=== PATIENT | female | born 1995 | race American Indian/Alaskan Native ===

== ENCOUNTER 2017-02-15 19:19 | Emergency (ER) | payer MEDICAID ==
[2017-02-15 19:46] VITALS: BP 140/78
== END 2017-02-16 01:58 | disposition left against medical advice (07) ==
LOC: ED 19:19
DX: R22.9 Localized swelling, mass and lump, unspecified (principal); Z53.21 Procedure and treatment not carried out due to patient leaving prior to being seen by health care provider

== ENCOUNTER 2017-03-06 14:20 | Emergency (ER) | payer MEDICAID ==
[2017-03-06 14:32] VITALS: BP 156/73
[2017-03-06 15:13] LABS: Bilirubin,Urine NEG (Negative); Blood,Urine NEG (Negative); Ketones,Urine NEG (Negative); Leukocyte Esterase,Urine NEG (Negative); Mucus,Urine FEW /HPF; Nitrite,Urine NEG (Negative); Protein,Urine <15 mg/dL mg/dL (Negative); RBC,Urine < 1.0 /HPF (0.0-6.0); Urobilinogen,Urine < 2.0 mg/dL (<2.0)
[2017-03-06 15:54] LABS: Basophils % (Auto) 0.1 % (0.0-1.8); Eosinophils % (Auto) 0.3 % (0.0-4.3); Hematocrit 29.6 % (30.3-42.9); Hemoglobin 9.2 gm/dl (10.1-14.3); Mean Corpuscular HGB Conc 31 % (30-34); Platelet Count 310 K/mm3 (140-440); Red Blood Count 4.65 M/mm3 (3.65-5.03); White Blood Count 13.5 K/mm3 (4.5-11.0)
[2017-03-06 15:55] LABS: Mean Corpuscular Hemoglobin 20 pg (28-32); Mean Corpuscular Volume 64 fl (79-97); Red Cell Distribution Width 20.4 % (13.2-15.2)
[2017-03-06 16:09] LABS: Alanine Aminotransferase 20 units/L (7-56); Albumin 3.7 g/dL (3.9-5); Albumin/Globulin Ratio 0.9 %; Alkaline Phosphatase 76 units/L (35-129); Anion Gap 16 mmol/L; Bilirubin,Total 0.2 mg/dL (0.1-1.2); Blood Urea Nitrogen 7 mg/dL (7-17); Calcium 9.2 mg/dL (8.4-10.2); Carbon Dioxide 24 mmol/L (22-30); Chloride 96.7 mmol/L (98-107); Glucose 92 mg/dL (65-100); Lipase 14 units/L (13-60); Potassium 3.7 mmol/L (3.6-5.0); Sodium 133 mmol/L (137-145); Total Protein 7.8 g/dL (6.3-8.2)
--- NOTE | 2017-03-07 14:14 | ED Elopement Review ---
ED Pt Elopement review - Results review Lab results: Laboratory Tests 03/06/17 03/06/17 03/06/17 15:02 15:26 15:26 WBC 13.5 H RBC 4.65 Hgb 9.2 L Hct 29.6 L MCV 64 L MCH 20 L MCHC 31 RDW 20.4 H Plt Count 310 Lymph % (Auto) 17.2 [place] % (Auto) 5.4 Eos % (Auto) 0.3 Baso % (Auto) 0.1 Lymph # 2.3 [place] # 0.7 Eos # 0.0 Baso # 0.0 Seg Neutrophils % 77.0 H Seg Neutrophils # 10.3 H Sodium Potassium Chloride Carbon Dioxide Anion Gap BUN Creatinine Estimated GFR BUN/Creatinine Ratio Glucose Calcium Total Bilirubin AST ALT Alkaline Phosphatase Total Protein Albumin Albumin/Globulin Ratio Lipase HCG, Qual Positive Urine Color Yellow Urine Turbidity Clear Urine pH 6.0 Ur Specific [place] 1.015 Urine Protein <15 mg/dl Urine Glucose (UA) Neg Urine Ketones Neg Urine Blood Neg Urine Nitrite Neg Urine Bilirubin Neg Urine Urobilinogen < 2.0 Ur Leukocyte Esterase Neg Urine WBC (Auto) 1.0 Urine RBC (Auto) < 1.0 U Epithel Cells (Auto) 2.0 Urine Mucus Few 03/06/17 15:26 WBC RBC Hgb Hct MCV MCH MCHC RDW Plt Count Lymph % (Auto) [place] % (Auto) Eos % (Auto) Baso % (Auto) Lymph # [place] # Eos # Baso # Seg Neutrophils % Seg Neutrophils # Sodium 133 L Potassium 3.7 Chloride 96.7 L Carbon Dioxide 24 Anion Gap 16 BUN 7 Creatinine 0.5 L Estimated GFR > 60 BUN/Creatinine Ratio 14.00 Glucose 92 Calcium 9.2 Total Bilirubin 0.2 AST 17 ALT 20 Alkaline Phosphatase 76 Total Protein 7.8 Albumin 3.7 L Albumin/Globulin Ratio 0.9 Lipase 14 HCG, Qual Urine Color Urine Turbidity Urine pH Ur Specific [place] Urine Protein Urine Glucose (UA) Urine Ketones Urine Blood Urine Nitrite Urine Bilirubin Urine Urobilinogen Ur Leukocyte Esterase Urine WBC (Auto) Urine RBC (Auto) U Epithel Cells (Auto) Urine Mucus - Call Back decision Pt Call Back Decision: Call pt to return to ED [facility] (for ultrasound)
== END 2017-03-06 17:20 | disposition left against medical advice (07) ==
LOC: ED 14:20
DX: O20.9 Hemorrhage in early pregnancy, unspecified (principal); R10.9 Unspecified abdominal pain; Z3A.13 13 weeks gestation of pregnancy
CPT/HCPCS: 36415; 80053; 81001; 83690; 84703; 85025

== ENCOUNTER 2017-06-04 13:20 | Outpatient (CLI) | payer MEDICAID ==
[2017-06-04] MEDS ORDERED: LACTATED RINGERS 500 ML IV ONE (14:04)
[2017-06-04 14:34] LABS: Bilirubin,Urine NEG (Negative); Blood,Urine NEG (Negative); Ketones,Urine NEG (Negative); Leukocyte Esterase,Urine NEG (Negative); Mucus,Urine 2+ /HPF; Nitrite,Urine NEG (Negative); Protein,Urine <15 mg/dL mg/dL (Negative); Urobilinogen,Urine < 2.0 mg/dL (<2.0)
[2017-06-04 15:09] LABS: WBC,Urine < 1.0 /HPF (0.0-6.0)
== END 2017-06-04 15:45 | disposition home or self-care (01) ==
LOC: TRG 13:20
PROVIDERS: ATTEND Obstetrics & Gynecology
DX: O47.02 False labor before 37 completed weeks of gestation, second trimester (principal); Z3A.23 23 weeks gestation of pregnancy
CPT/HCPCS: 59025; 81001; 96360; J7120

== ENCOUNTER 2017-09-05 15:21 | Outpatient (CLI) | payer MEDICAID ==
[2017-09-05 16:39] LABS: Hematocrit 27.7 % (30.3-42.9); Hemoglobin 8.5 gm/dl (10.1-14.3); Mean Corpuscular HGB Conc 31 % (30-34); Mean Corpuscular Hemoglobin 21 pg (28-32); Mean Corpuscular Volume 67 fl (79-97); Platelet Count 281 K/mm3 (140-440); Red Blood Count 4.13 M/mm3 (3.65-5.03); White Blood Count 13.9 K/mm3 (4.5-11.0)
[2017-09-05 16:40] LABS: Red Cell Distribution Width 20.6 % (13.2-15.2)
[2017-09-05 17:00] LABS: Alanine Aminotransferase 14 units/L (7-56); Lactate Dehydrogenase 167 units/L (91-180); Uric Acid 3.8 mg/dL (3.5-7.6)
[2017-09-05 17:01] VITALS: BP 137/56
[2017-09-05 17:06] LABS: Bacteria,Urine 1+ /HPF (Negative); Bilirubin,Urine NEG (Negative); Blood,Urine NEG (Negative); Ketones,Urine NEG (Negative); Leukocyte Esterase,Urine NEG (Negative); Mucus,Urine 2+ /HPF; Nitrite,Urine NEG (Negative); Urobilinogen,Urine < 2.0 mg/dL (<2.0)
== END 2017-09-05 17:39 | disposition home or self-care (01) ==
LOC: TRG 15:21
PROVIDERS: ATTEND Obstetrics & Gynecology
DX: O47.1 False labor at or after 37 completed weeks of gestation (principal); Z3A.37 37 weeks gestation of pregnancy
CPT/HCPCS: 36415; 59025; 81001; 82565; 83615; 84450; 84460; 84550; 85027

== ENCOUNTER 2017-10-30 09:54 | Emergency (ER) | payer MEDICAID ==
[2017-10-30 10:18] VITALS: BP 137/68
--- NOTE | 2017-10-30 11:35 | Emergency Department Report ---
HPI - General Chief Complaint: Dental/Oral Time Seen by Provider: 10/30/17 11:35 - HPI HPI: Patient here reports that she has bilateral molars that are broken and she is having pain 10 out of 10. She says she has an appointment with her dentist on November 14. She says she was placed on penicillin but she completed penicillin. She says she is using Goody powder for pain and it is not helping. Pain is achy and throbbing at times. Worse with eating. Denies nature earlier in, sore throat, coughing or shortness of breath. Denies any nasal congestion or runny nose. She said this has been ongoing for 3 months now. Denies any nausea or vomiting. Denies any facial swelling ED Past Medical Hx - Past Medical History Previous Medical History?: Yes Hx Hypertension: Yes (CHTN) Hx Congestive Heart Failure: No Hx Diabetes: Yes (Type II) Hx Deep Vein Thrombosis: No Hx Renal Disease: No Hx Sickle Cell Disease: No Hx Seizures: No Hx Kidney Stones: Yes Hx Asthma: Yes (last used 2 mos ago) Hx COPD: No Hx HIV: No Additional medical history: vaginal delivery x 1, abd. pain, Miscarriage, Left ovarian cyst - Surgical History Past Surgical History?: No - Family History Family history: hypertension - Social History Smoking Status: Never Smoker Substance Use Type: None - Medications Home Medications: Home Medications Medication Instructions Recorded Confirmed Last Taken Type Insulin Aspart Protam & Aspart 5 units SUB-Q TID #1 mo 04/25/17 06/16/17 21:00 Rx [NovoLOG Mix 70-30 Flexpen] 5 units Labetalol [Normodyne TAB] 100 mg PO BID #60 tablet 04/25/17 06/16/17 06/15/17 21 :00 Rx 100mg Metformin HCl [Glucophage Xr] 500 mg PO BID #60 04/25/17 06/16/17 06/15/17 21: 00 Rx 500mg Nitrofurantoin [place]/M-Cryst 100 mg PO Q12HR 06/16/17 06/16/17 06/15/17 21:00 History [Macrobid CAP] 100mg Vit No.130/Iron/Folic 1 each PO DAILY 06/16/17 06/16/17 06/15/17 21:00 History [ Tablet] Cefuroxime Axetil [Ceftin] 500 mg PO Q12H #14 tablet 06/20/17 Unknown Rx Potassium Chloride 20 meq PO QDAY #5 packet 06/20/17 Unknown Rx Ibuprofen [Motrin] 600 mg PO Q8H PRN #30 tablet 09/14/17 Unknown Rx oxyCODONE /ACETAMINOPHEN [Percocet 1 tab PO Q6HR PRN #30 tablet 09/14/17 Unknown Rx 5/325] Ferrous Sulfate 325 mg PO BID #60 tablet. 09/15/17 Unknown Rx Acetaminophen/Codeine [Tylenol 1 tab PO Q8H PRN 5 Days #15 tab 10/30/17 Unknown Rx /Codeine # 3 tab] Ibuprofen [Motrin] 600 mg PO Q8H PRN 10 Days #30 10/30/17 Unknown Rx tablet Penicillin V Potassium 500 mg PO Q8H 10 Days #30 tablet 10/30/17 Unknown Rx ED Review of Systems ROS: Stated complaint: TOOTH BROKEN,TOOTHACHE Other details as noted in HPI Comment: All other systems reviewed and negative Constitutional: no symptoms reported ENT: dental pain. denies: ear pain, throat pain, congestion Respiratory: no symptoms reported Cardiovascular: denies: chest pain, palpitations, edema, syncope Gastrointestinal: denies: abdominal pain, nausea, vomiting Musculoskeletal: denies: back pain, joint swelling, arthralgia, myalgia Skin: denies: rash Neurological: denies: headache, weakness, numbness, paresthesias, confusion, abnormal gait, vertigo Physical Exam - Physical Exam Vital Signs: Vital Signs 10/30/17 10:13 Temperature 98.7 F Pulse Rate 99 H Respiratory 16 Rate Blood Pressure 137/68 O2 Sat by Pulse 100 Oximetry General: This is a 22-year-old female well-nourished well-developed in no acute distress Physical Exam: Head: Normocephalic, atraumatic, no abrasion, no bruising and no contusion. Eyes: Biateral pupils equal and reactive to light, bilateral EOM intact.. Bilateral conjunctival and sclera without injection, normal accommodation. No nystagmus Ears: Bilateral TMs pearly corona, bilateral nasal mucosa normal without any drainage. No maxillary or frontal sinus tenderness. No mastoid bone tenderness. Bilateral tract is nontender to palpate Mouth: Moist, no pharyngeal exudate or erythema. Uvula is midline and tongue is normal. Oral airways patent. Patient with mild gingival inflammation and tenderness to palpation around tooth #1 and 2. No induration noted. No facial swelling and multiple dental caries. Patient also has cracked tooth # 18 and 19 Neck: Supple, No Cervical adenopathy, full range of motion and no C-spine tenderness. No swelling or tracheal deviation normal reflexes PSYCH: Normal mood and behavior Cardiovascular: S1, S2. Regular rate and rhythm. No murmur. Capillary refill is less then 3 seconds. Lungs: Clear to auscultate bilaterally. No rhonchi, wheezes or rales. No chest wall tenderness MSK: Strength 5/5 in all extremities. No joint deformity or crepitus. Normal inspection. Full range of motion to all extremities Extremities: No clubbing, cyanosis or edema. +2 pulses. No neurovascular compromise Skin: Clean, dry and intact. No rash or lesions. ED Course Vital Signs 10/30/17 10:13 Temperature 98.7 F Pulse Rate 99 H Respiratory 16 Rate Blood Pressure 137/68 O2 Sat by Pulse 100 Oximetry - Reevaluation(s) Reevaluation #1: 10/30/17 13:21 Given Percocet 5/325 2 tablets in the emergency room for toothache. ED Medical Decision Making - Medical Decision Making ED Course: Senior presented with toothache and said that she was on antibiotics which she completed 2 weeks ago. She says she has a dental appointment for November 14 but she still have an severe toothache and cannot wait until she see the doctor. Physical findings for multiple dental caries, mild gingivitis and crack tooth to #18 and 19, tenderness to palpate surrounding tooth #1 and 2. Given Percocet 5/325 mg 2 tablets in the emergency room which helped her pain. I discussed with her she needs to keep her dental appointment and I will place her on Tylenol 3, Motrin and another round of penicillin. She was discharged home in stable condition with prescription for Tylenol 3, Motrin and penicillin Critical care attestation.: If time is entered above; I have spent that time in minutes in the direct care of this critically ill patient, excluding procedure time. ED Disposition Clinical Impression: Tooth ache, Gingivitis, Dental caries Fractured tooth Qualifiers: Encounter type: initial encounter Fracture type: closed Qualified Code(s): S02.5XXA - Fracture of tooth (traumatic), initial encounter for closed fracture Disposition: DC-01 TO HOME OR SELFCARE Is pt being admited?: No Does the pt Need Aspirin: No Condition: Stable Instructions: Dental Caries (ED), Toothache (ED), Gingivitis (ED) Additional Instructions: Follow up with Dentist as schedule Take antibiotic as prescribed Please do not drive or operate heavy machinery while taking tyleno #3 as this medicine cause drowsiness Gargle with Listerine mouthwash Prescriptions: Acetaminophen/Codeine [Tylenol /Codeine # 3 tab] 1 tab PO Q8H PRN 5 Days #15 tab PRN Reason: Pain, Moderate (4-6) Ibuprofen [Motrin] 600 mg PO Q8H PRN 10 Days #30 tablet PRN Reason: Pain Penicillin V Potassium 500 mg PO Q8H 10 Days #30 tablet Referrals: [facility] [Outside] - 3-5 Days Your, Dentist [Other] - 3-5 Days Forms: Accompanied Note, Work/School Release Form(ED)
[2017-10-30] MEDS ORDERED: PERCOCET 5/325 PO ONE (12:41)
== END 2017-10-30 13:39 | disposition home or self-care (01) ==
LOC: ED 09:54
DX: K03.81 Cracked tooth (principal); K05.10 Chronic gingivitis, plaque induced; K02.9 Dental caries, unspecified; I10 Essential (primary) hypertension; E11.9 Type 2 diabetes mellitus without complications; J45.909 Unspecified asthma, uncomplicated; Z79.4 Long term (current) use of insulin
CPT/HCPCS: 99282

== ENCOUNTER 2017-12-24 21:00 | Emergency (ER) | payer MEDICAID ==
[2017-12-24 21:40] VITALS: BP 150/82
[2017-12-25] MEDS ORDERED: TRIMOX PO ONE (00:07)
[2017-12-25] MEDS ORDERED: TYLENOL #3 PO ONE (00:07)
--- NOTE | 2017-12-25 00:08 | Emergency Department Report ---
HPI - General Chief Complaint: Dental/Oral Time Seen by Provider: 12/25/17 00:05 - HPI HPI: The patient is a 22-year-old female who presents to ED complaining of 8/10 pain in the right side of his mouth x 3 days . Patient states that the pain started 3 days ago and has increased in severity over the last 24 HOURS. The pain is exacerbated by eating and opening of the mouth. Patient states the pain is alleviated initially with pain medication but comes back. Patient states that it radiates towards ear. Patient describes a as a throbbing, pressure-like sensation. Patient states otherwise well and has no other complaints. Patient has had no fevers and no chills. No chest pain, no shortness of breath. No abdominal pain. No shortness of breath or recent trauma to the face. ED Past Medical Hx - Past Medical History Previous Medical History?: Yes Hx Hypertension: Yes (CHTN) Hx Congestive Heart Failure: No Hx Diabetes: Yes (Type II) Hx Deep Vein Thrombosis: No Hx Renal Disease: No Hx Sickle Cell Disease: No Hx Seizures: No Hx Kidney Stones: Yes Hx Asthma: Yes (last used 2 mos ago) Hx COPD: No Hx HIV: No Additional medical history: vaginal delivery x 1, abd. pain, Miscarriage, Left ovarian cyst - Surgical History Past Surgical History?: No - Social History Smoking Status: Former Smoker Substance Use Type: None - Medications Home Medications: Home Medications Medication Instructions Recorded Confirmed Last Taken Type Insulin Aspart Protam & Aspart 5 units SUB-Q TID #1 mo 04/25/17 06/16/17 21:00 Rx [NovoLOG Mix 70-30 Flexpen] 5 units Labetalol [Normodyne TAB] 100 mg PO BID #60 tablet 04/25/17 06/16/17 06/15/17 21 :00 Rx 100mg Metformin HCl [Glucophage Xr] 500 mg PO BID #60 04/25/17 06/16/17 06/15/17 21: 00 Rx 500mg Nitrofurantoin [place]/M-Cryst 100 mg PO Q12HR 06/16/17 06/16/17 06/15/17 21:00 History [Macrobid CAP] 100mg Vit No.130/Iron/Folic 1 each PO DAILY 06/16/17 06/16/17 06/15/17 21:00 History [ Tablet] Cefuroxime Axetil [Ceftin] 500 mg PO Q12H #14 tablet 06/20/17 Unknown Rx Potassium Chloride 20 meq PO QDAY #5 packet 06/20/17 Unknown Rx Ibuprofen [Motrin] 600 mg PO Q8H PRN #30 tablet 09/14/17 Unknown Rx oxyCODONE /ACETAMINOPHEN [Percocet 1 tab PO Q6HR PRN #30 tablet 09/14/17 Unknown Rx 5/325] Ferrous Sulfate 325 mg PO BID #60 tablet. 09/15/17 Unknown Rx Acetaminophen/Codeine [Tylenol 1 tab PO Q8H PRN 5 Days #15 tab 10/30/17 Unknown Rx /Codeine # 3 tab] Ibuprofen [Motrin] 600 mg PO Q8H PRN 10 Days #30 10/30/17 Unknown Rx tablet Penicillin V Potassium 500 mg PO Q8H 10 Days #30 tablet 10/30/17 Unknown Rx Acetaminophen/Codeine [Tylenol 1 tab PO Q6H PRN #10 tab 12/25/17 Unknown Rx /Codeine # 3 tab] Amoxicillin [Amoxicillin TAB] 875 mg PO BID #20 tablet 12/25/17 Unknown Rx Ibuprofen [Motrin] 800 mg PO Q8HR PRN #30 tablet 12/25/17 Unknown Rx ED Review of Systems ROS: Stated complaint: TOOTHACHE Other details as noted in HPI Constitutional: denies: chills, fever Eyes: denies: eye pain, eye discharge, vision change ENT: dental pain. denies: ear pain, throat pain Respiratory: denies: cough, shortness of breath, wheezing Cardiovascular: denies: chest pain, palpitations Endocrine: no symptoms reported Gastrointestinal: denies: abdominal pain, nausea, diarrhea Genitourinary: denies: urgency, dysuria, discharge Musculoskeletal: denies: back pain, joint swelling, arthralgia Skin: denies: rash, lesions Neurological: denies: headache, weakness, paresthesias Psychiatric: denies: anxiety, depression Hematological/Lymphatic: denies: easy bleeding, easy bruising Physical Exam - Physical Exam Vital Signs: Vital Signs 12/24/17 21:37 Temperature 98.8 F Pulse Rate 87 Respiratory 18 Rate Blood Pressure 150/82 O2 Sat by Pulse 95 Oximetry Physical Exam: GENERAL: Alert and oriented x3, no apparent distress, Normal Gait, atraumatic. HEAD: Head is normocephalic and a-traumatic. MOUTH:Mouth is well hydrated and without lesions. Tonsils nonerythematous or swollen, Uvula midline, Tongue not elevated. Mucous membranes are moist. Posterior pharynx clear, no exudate or lesions. Patent airways. Partially missing tooth #19 and 20, dental caries in tooth #30. Tender to palpation, no gingival enlargement, no bleeding of the gums. NECK: Supple. Non edematous,No lymphadenopathy or thyromegaly. No C-spine tenderness LUNGS: Symetrical with respiration, No wheezing, no rales or crackles, CTAB. HEART: S1, S2 present, regular rate and rhythm without murmur, no rubs, no gallops. Non tender to palpation SKIN: Warm and dry, No lesions, No ulceration or induration present. ED Course Vital Signs 12/24/17 21:37 Temperature 98.8 F Pulse Rate 87 Respiratory 18 Rate Blood Pressure 150/82 O2 Sat by Pulse 95 Oximetry ED Medical Decision Making - Medical Decision Making 22-year-old female who presents with right-sided Facial pain secondary to odontogenic caries ED course: Patient received 1000 mg of amoxicillin, 1 tablets of Tylenol No. 3 and 800 mg motrin. Odontogenic infection versus ear infection. Based upon history and physical examination, pain is a result of an infection of tooth numbers 19,20 and .30 that the pain Pt feels on the right side of his face and towards the ear is referred pain from this infectious process. Pt has no evidence of acute impending airway compromise. At this point, patient will be discharged home on some antibiotics and pain trial, she will do well with an outpatient course of antibiotics. Follow up with the Dental Clinic as referred Vital signs are normal patient is in no acute distress. Pt had an effect uneventful ED stay Critical care attestation.: If time is entered above; I have spent that time in minutes in the direct care of this critically ill patient, excluding procedure time. ED Disposition Clinical Impression: Pain, dental, Dental caries Disposition: TO HOME OR SELFCARE Is pt being admited?: No Does the pt Need Aspirin: No Condition: Stable Instructions: Dental Caries (ED), Toothache (ED) Additional Instructions: Make sure to follow up with the primary care physician as well DENTIST as discussed. Take all your medications as you've been prescribed. If you have any worsening symptoms or develop new symptoms please return to ED immediately. Prescriptions: Acetaminophen/Codeine [Tylenol /Codeine # 3 tab] 1 tab PO Q6H PRN #10 tab PRN Reason: Pain Amoxicillin [Amoxicillin TAB] 875 mg PO BID #20 tablet Ibuprofen [Motrin] 800 mg PO Q8HR PRN #30 tablet PRN Reason: Pain Referrals: PRIMARY CARE, [Primary Care Provider] - 3-5 Days [facility] [Outside] - 3-5 Days [facility] [Outside] - 3-5 Days [facility] [Outside] - 3-5 Days [facility] [Outside] - 3-5 Days Forms: Work/School Release Form(ED) Time of Disposition: 01:06
[2017-12-25] MEDS ORDERED: MOTRIN PO ONE (01:34)
== END 2017-12-25 01:55 | disposition home or self-care (01) ==
LOC: ED 21:00
DX: K02.9 Dental caries, unspecified (principal); K08.89 Other specified disorders of teeth and supporting structures; I10 Essential (primary) hypertension; E11.9 Type 2 diabetes mellitus without complications; J45.909 Unspecified asthma, uncomplicated; Z87.891 Personal history of nicotine dependence; Z79.4 Long term (current) use of insulin
CPT/HCPCS: 99282

== ENCOUNTER 2021-10-12 23:50 | Emergency (ER) | payer MEDICAID ==
[2021-10-13] MEDS ORDERED: HYDROcodone/ACETAMINOPHEN 5-325 MG TAB PO ONE (01:22)
--- NOTE | 2021-10-13 01:27 | Emergency Department Report ---
ED General Adult HPI - General Chief complaint: Pain General Stated complaint: CHEST PAIN Time Seen by Provider: 10/13/21 00:29 Source: patient Mode of arrival: Ambulatory Limitations: No Limitations - History of Present Illness Initial comments: Patient 26-year-old female who presents for left anterior lateral chest wall pain. Patient states for the last 2 weeks. Was seen at [facility] diagnosed with costochondritis. Patient states she was treated with muscle relaxants and Ultram. States she is currently out of medications and chest pain has returned. Is no cough no fever, chills, nausea or vomiting. There is no shortness of breath. Is been no dizziness or lightheadedness. Last menstrual period 2 weeks ago. Patient denies relieving factor, symptoms are exacerbated by deep breathing and movement and palpation. - Related Data Home Medications Medication Instructions Recorded Confirmed Last Taken Nitrofurantoin Menard/M-Cryst 100 mg PO Q12HR 06/16/17 06/16/17 06/15/17 21:00 [Macrobid CAP] 100 mg Vit No.130/Iron/Folic 1 each PO DAILY 06/16/17 06/16/17 06/15/17 21:00 [ Tablet] Previous Rx's Medication Instructions Recorded Last Taken Type Insulin Aspart Protam & Aspart 5 units SUB-Q TID #1 mo 04/25/17 06/15/17 21:00 Rx [NovoLOG Mix 70-30 Flexpen] 5 units Metformin HCl [Glucophage Xr] 500 mg PO BID #60 04/25/17 06/15/17 21:00 Rx 500 mg labetaloL [Labetalol 100mg TAB] 100 mg PO BID #60 tablet 04/25/17 06/15/17 21:00 Rx 100 mg Cefuroxime Axetil [Ceftin] 500 mg PO Q12H #14 tablet 06/20/17 Unknown Rx Potassium Chloride 20 meq PO QDAY #5 packet 06/20/17 Unknown Rx Ibuprofen [Motrin] 600 mg PO Q8H PRN #30 tablet 09/14/17 Unknown Rx oxyCODONE /ACETAMINOPHEN [Percocet 1 tab PO Q6HR PRN #30 tablet 09/14/17 Unknown Rx 5/325] Ferrous Sulfate 325 mg PO BID #60 tablet. 09/15/17 Unknown Rx Acetaminophen/Codeine [Tylenol 1 tab PO Q8H PRN 5 Days #15 tab 10/30/17 Unknown Rx /Codeine # 3 tab] Ibuprofen [Motrin] 600 mg PO Q8H PRN 10 Days #30 10/30/17 Unknown Rx tablet Penicillin V Potassium 500 mg PO Q8H 10 Days #30 tablet 10/30/17 Unknown Rx Acetaminophen/Codeine [Tylenol 1 tab PO Q6H PRN #10 tab 12/25/17 Unknown Rx /Codeine # 3 tab] Amoxicillin [Amoxicillin TAB] 875 mg PO BID #20 tablet 12/25/17 Unknown Rx Ibuprofen [Motrin] 800 mg PO Q8HR PRN #30 tablet 12/25/17 Unknown Rx Capsaicin 0.075% [Zostrix Hp 1 applicatio TP TID #1 tube 10/13/21 Unknown Rx 0.075%] Naproxen [Naprosyn] 500 mg PO BID PRN #30 tablet 10/13/21 Unknown Rx methocarbamoL [Methocarbamol] 500 mg PO BID PRN #30 tablet 10/13/21 Unknown Rx Allergies Allergy/AdvReac Type Severity Reaction Status Date / Time Latex, Natural Rubber Allergy Hives Verified 06/16/17 03:25 ED Review of Systems ROS: Stated complaint: CHEST PAIN Other details as noted in HPI Constitutional: denies: chills, fever Eyes: denies: eye pain, eye discharge, vision change ENT: as per HPI. denies: dental pain, congestion Respiratory: no symptoms reported Cardiovascular: chest pain. denies: palpitations, dyspnea on exertion, paroxysmal nocturnal dyspnea Endocrine: no symptoms reported Gastrointestinal: denies: abdominal pain, nausea, vomiting, diarrhea, constipation, hematemesis Genitourinary: denies: urgency, dysuria, frequency, hematuria, discharge Musculoskeletal: denies: back pain, joint swelling, arthralgia Skin: denies: rash, lesions Neurological: denies: headache, weakness, paresthesias Psychiatric: anxiety. denies: depression, auditory hallucinations, homicidal thoughts, suicidal thoughts Hematological/Lymphatic: denies: easy bleeding, easy bruising ED Past Medical Hx - Past Medical History Previous Medical History?: Yes Hx Hypertension: Yes (CHTN) Hx Congestive Heart Failure: No Hx Diabetes: Yes (Type II) Hx Deep Vein Thrombosis: No Hx Renal Disease: No Hx Sickle Cell Disease: No Hx Seizures: No Hx Kidney Stones: Yes Hx Asthma: Yes (last used 2 mos ago) Hx COPD: No Hx HIV: No Additional medical history: vaginal delivery x 1, abd. pain, Miscarriage, Left ovarian cyst - Surgical History Past Surgical History?: No - Social History Smoking Status: Former Smoker Substance Use Type: None - Medications Home Medications: Home Medications Medication Instructions Recorded Confirmed Last Taken Type Insulin Aspart Protam & Aspart 5 units SUB-Q TID #1 mo 04/25/17 06/16/17 06/15/17 21:00 Rx [NovoLOG Mix 70-30 Flexpen] 5 units Metformin HCl [Glucophage Xr] 500 mg PO BID #60 04/25/17 06/16/17 06/15/17 21:00 Rx 500 mg labetaloL [Labetalol 100mg TAB] 100 mg PO BID #60 tablet 04/25/17 06/16/17 06/15/17 21:00 Rx 100 mg Nitrofurantoin Menard/M-Cryst 100 mg PO Q12HR 06/16/17 06/16/17 06/15/17 21:00 History [Macrobid CAP] 100 mg Vit No.130/Iron/Folic 1 each PO DAILY 06/16/17 06/16/17 06/15/17 21:00 History [ Tablet] Cefuroxime Axetil [Ceftin] 500 mg PO Q12H #14 tablet 06/20/17 Unknown Rx Potassium Chloride 20 meq PO QDAY #5 packet 06/20/17 Unknown Rx Ibuprofen [Motrin] 600 mg PO Q8H PRN #30 tablet 09/14/17 Unknown Rx oxyCODONE /ACETAMINOPHEN [Percocet 1 tab PO Q6HR PRN #30 tablet 09/14/17 Unknow n Rx 5/325] Ferrous Sulfate 325 mg PO BID #60 tablet. 09/15/17 Unknown Rx Acetaminophen/Codeine [Tylenol 1 tab PO Q8H PRN 5 Days #15 tab 10/30/17 Unknown Rx /Codeine # 3 tab] Ibuprofen [Motrin] 600 mg PO Q8H PRN 10 Days #30 10/30/17 Unknown Rx tablet Penicillin V Potassium 500 mg PO Q8H 10 Days #30 tablet 10/30/17 Unknown Rx Acetaminophen/Codeine [Tylenol 1 tab PO Q6H PRN #10 tab 12/25/17 Unknown Rx /Codeine # 3 tab] Amoxicillin [Amoxicillin TAB] 875 mg PO BID #20 tablet 12/25/17 Unknown Rx Ibuprofen [Motrin] 800 mg PO Q8HR PRN #30 tablet 12/25/17 Unknown Rx Capsaicin 0.075% [Zostrix Hp 1 applicatio TP TID #1 tube 10/13/21 Unknown Rx 0.075%] Naproxen [Naprosyn] 500 mg PO BID PRN #30 tablet 10/13/21 Unknown Rx methocarbamoL [Methocarbamol] 500 mg PO BID PRN #30 tablet 10/13/21 Unknown Rx ED Physical Exam - General Limitations: No Limitations General appearance: alert, in no apparent distress - Head Head exam: Present: atraumatic, normocephalic - Eye Eye exam: Present: normal appearance, EOMI Pupils: Present: normal accommodation - ENT ENT exam: Present: mucous membranes moist - Neck Neck exam: Present: normal inspection, full ROM. Absent: tenderness, meningismus, lymphadenopathy, thyromegaly - Respiratory Respiratory exam: Present: respiratory distress, chest wall tenderness. Absent: wheezes, rales, rhonchi, stridor - Cardiovascular Cardiovascular Exam: Present: regular rate, normal rhythm, normal heart sounds. Absent: systolic murmur, diastolic murmur, rubs, gallop - GI/Abdominal GI/Abdominal exam: Present: soft, normal bowel sounds. Absent: distended, tenderness, guarding, rebound, rigid, bruit, hernia - Rectal Rectal exam: Present: deferred - External exam: Present: other (deferred by patient ) - Extremities Exam Extremities exam: Present: normal inspection, full ROM, normal capillary refill. Absent: tenderness - Back Exam Back exam: Present: normal inspection, full ROM. Absent: CVA tenderness (R), CVA tenderness (L) - Neurological Exam Neurological exam: Present: alert, oriented X3, CN II-XII intact, normal gait, reflexes normal. Absent: motor sensory deficit - Psychiatric Psychiatric exam: Present: normal affect, normal mood - Skin Skin exam: Present: warm, dry, intact, normal color. Absent: rash ED Course Vital Signs 10/13/21 00:09 Temperature 97.9 F Pulse Rate 84 Respiratory 18 Rate Blood Pressure 130/79 O2 Sat by Pulse 99 Oximetry ED Medical Decision Making - Lab Data Result diagrams: 10/13/21 01:05 10/13/21 01:05 Labs 10/13/21 10/13/21 10/13/21 01:05 01:05 Unknown WBC 9.7 RBC 5.09 H Hgb 11.4 Hct 36.6 MCV 72 L MCH 22 L MCHC 31 RDW 18.3 H Plt Count 279 Lymph % (Auto) 34.5 Menard % (Auto) 5.8 Eos % (Auto) 1.0 Baso % (Auto) 0.1 Lymph # (Auto) 3.3 Menard # (Auto) 0.6 Eos # (Auto) 0.1 Baso # (Auto) 0.0 Seg Neutrophils % 58.6 Seg Neutrophils # 5.7 Sodium 141 Potassium 4.3 Chloride 101.8 Carbon Dioxide 27 Anion Gap 17 BUN 11 Creatinine 0.6 Estimated GFR > 60 BUN/Creatinine Ratio 18 Glucose 135 H Calcium 9.2 Total Bilirubin 0.20 AST 13 ALT 18 Alkaline Phosphatase 90 Total Protein 7.8 Albumin 4.1 Albumin/Globulin Ratio 1.1 Urine Bilirubin Neg Urine RBC (Auto) 3.0 U Epithel Cells (Auto) 5.0 - EKG Data EKG shows normal: sinus rhythm, axis, intervals, QRS complexes, ST-T waves Rate: normal - EKG Data When compared to previous EKG there are: previous EKG unavailable Interpretation: normal EKG (NSR no STEMI, ,kk) - Radiology Data Radiology results: report reviewed, image reviewed ABDOMEN 1 VIEW 10/13/2021 12:14 AM INDICATION / CLINICAL INFORMATION: abd pain. COMPARISON: None available. FINDINGS: TUBES / LINES: None. BOWEL GAS PATTERN: No significant abnormality. FREE AIR / EXTRALUMINAL GAS: None. ADDITIONAL FINDINGS: No urinary tract calcifications. Lung bases appear clear. IMPRESSION: 1. No acute findings. Signer Name: Jr Mehta MD Signed: 10/13/2021 12:51 AM Workstation Name: [id number] Transcribed By: DT Dictated By: Yo Mehta MD Electronically Authenticated By: Yo Mehta MD Signed Date/Time: 10/13/2150 - Medical Decision Making EKG normal sinus rhythm no ST elevated MT interpreted by ED attending, chest x- ray normal no infiltrates no opacities. Labs are normal. Plan DC to home with prescription, follow-up with your primary care doctor in 2 to 3 days. Return to ER should symptoms worsen. Patient verbalized agreement and understanding with same. Critical care attestation.: If time is entered above; I have spent that time in minutes in the direct care of this critically ill patient, excluding procedure time. ED Disposition Clinical Impression: Costochondral chest pain Disposition: HOME / SELF CARE / HOMELESS Is pt being admited?: No Does the pt Need Aspirin: No Condition: Stable Instructions: Nonspecific Chest Pain, Adult, Costochondritis Additional Instructions: Take medications as prescribed, follow-up with your primary care doctor as directed. Continue to follow cardiology as directed. Return to emergency department should symptoms worsen. Prescriptions: methocarbamoL [Methocarbamol] 500 mg PO BID PRN #30 tablet PRN Reason: pain muscle spassm Naproxen [Naprosyn] 500 mg PO BID PRN #30 tablet PRN Reason: pain Capsaicin 0.075% [Zostrix Hp 0.075%] 1 applicatio TP TID #1 tube Referrals: TANNER BLANK MD [Staff Physician] - 3-5 Days RICARDO SMITH MD [Staff Physician] - 3-5 Days Forms: Work/School Release Form(ED)
[2021-10-13 01:32] LABS: Basophils % (Auto) 0.1 % (0.0-1.8); Eosinophils # (Auto) 0.1 K/mm3 (0.0-0.4); Hematocrit 36.6 % (30.3-42.9); Hemoglobin 11.4 gm/dl (10.1-14.3); Lymphocytes # (Auto) 3.3 K/mm3 (1.2-5.4); Lymphocytes % (Auto) 34.5 % (13.4-35.0); Mean Corpuscular HGB Conc 31 % (30-34); Mean Corpuscular Volume 72 fl (79-97); Monocytes # (Auto) 0.6 K/mm3 (0.0-0.8); Monocytes % (Auto) 5.8 % (0.0-7.3); Platelet Count 279 K/mm3 (140-440); Red Blood Count 5.09 M/mm3 (3.65-5.03); Red Cell Distribution Width 18.3 % (13.2-15.2)
--- NOTE | 2021-10-13 01:54 | XRay Report ---
CHEST 2 VIEWS INDICATION / CLINICAL INFORMATION: left sided chest pain. COMPARISON: 06/18/17 FINDINGS: SUPPORT DEVICES: None. HEART / MEDIASTINUM: No significant abnormality. LUNGS / PLEURA: No significant pulmonary or pleural abnormality. No pneumothorax. ADDITIONAL FINDINGS: No significant additional findings. IMPRESSION: 1. No acute findings. Signer Name: Jr Mehta MD Signed: 10/13/2021 1:50 AM Workstation Name: [id number]
[2021-10-13 01:56] LABS: Alanine Aminotransferase 18 units/L (7-56); Albumin 4.1 g/dL (3.9-5); BUN/Creatinine Ratio 18; Blood Urea Nitrogen 11 mg/dL (7-17); Calcium 9.2 mg/dL (8.4-10.2); Hemolysis Index 7
[2021-10-13 02:06] LABS: Bilirubin,Urine NEG (Negative); Blood,Urine NEG (Negative); Color,Urine Yellow (Yellow); Mucus,Urine 3+ /HPF; Protein,Urine <15 mg/dL mg/dL (Negative)
[2021-10-13] MEDS ORDERED: IBUPROFEN 800 MG TAB PO ONE (02:30)
[2021-10-13 03:20] VITALS: BP 134/82
--- NOTE | 2021-10-13 13:10 | Electrocardiograph Report ---
[facility] Test Date: 2021-10-13 Test Time: 01:25:48 Pat Name: SATNAM HERNANDEZ Department: Room: Gender: F Car Inspector: : 1995 Requested By: PLACIDO VEGA Order Number: [id number] Reading MD: Yong Lawler Measurements Intervals [place] Rate: 76 P: 48 AK: 146 QRS: 27 QRSD: 95 T: 7 QT: 385 QTc: 433 Interpretive Statements Sinus rhythm No previous ECG available for comparison Electronically Signed On 10-13-2021 13:10:17 EST by Yong Lawler
== END 2021-10-13 03:06 | disposition home or self-care (01) ==
LOC: ED 23:50
DX: R07.89 Other chest pain (principal); M94.0 Chondrocostal junction syndrome [Tietze]; I10 Essential (primary) hypertension; E11.9 Type 2 diabetes mellitus without complications; Z91.040 Latex allergy status; Z79.899 Other long term (current) drug therapy
CPT/HCPCS: 36415; 71046; 80053; 81001; 85025; 87086; 93005; 99284